=== PATIENT | female | born 1995 | race African-American/Black ===

== ENCOUNTER 2019-04-08 05:17 | Inpatient (IN) | payer MEDICAID, OTHER ==
[2019-04-08] MEDS ORDERED: Butorphanol 1 MG/ML SDV IVPUSH PRN (07:19)
[2019-04-08] MEDS ORDERED: Water For Irrigation,Sterile 1,000 ML Container IRR PRN (07:19)
[2019-04-08] MEDS ORDERED: Sodium Chloride 0.9% 2.5 ML Syringe FLUSH PRN (07:19)
[2019-04-08] MEDS ORDERED: Lidocaine 1% 50 ML MDV INJECT PRN (07:19)
[2019-04-08] MEDS ORDERED: Sodium Chloride 0.9% 10 ML Syringe FLUSH PRN (07:19)
[2019-04-08] MEDS ORDERED: Nalbuphine 10 MG/1 ML Vial IVPUSH PRN (07:19)
[2019-04-08] MEDS ORDERED: Methylergonovine 0.2 MG/1 ML Amp IM PRN (07:19)
[2019-04-08] MEDS ORDERED: Misoprostol 200 MCG Tab PO PRN (07:19)
[2019-04-08] MEDS ORDERED: Sodium Chloride 0.9% 10 ML SDV IV PRN (07:19)
[2019-04-08] MEDS ORDERED: Ondansetron 4 MG/2 ML SDV IV PRN (07:19)
[2019-04-08] MEDS ORDERED: Carboprost Tromethamine 250 MCG/1 ML Amp IM PRN (07:19)
[2019-04-08] MEDS ORDERED: Tranexamic Acid 1,000 MG in Sodium Chloride 0.9% 100 ML IV PRN (07:19)
[2019-04-08] MEDS ORDERED: Oxytocin/0.9 % Sodium Chloride 30 UNIT/500 ML BAG IV SCH ×2 (07:30→17:00)
[2019-04-08] MEDS: Lactated Ringers 1,000 ML IV SCH ×2 (10:55→16:56)
--- NOTE | 2019-04-08 11:56 | PCM.LDHP ---
L&D History of Present Illness - General Date of Service: 04/08/19 Admit Problem/Dx: Patient Status Order with Admit Dx/Problem 04/08/19 06:02 Patient Status [ADT] Routine 04/08/19 07:20 Patient Status [ADT] Routine Admission Diagnosis/Problem Admission Diagnosis/Problem Source of Information: Patient History Limitations: Reports: No Limitations - History of Present Illness Pain Score: 10 Improves with: Reports: None Worsens with: Reports: None Associated Symptoms: Reports: N - Related Data Allergies/Adverse Reactions: Allergies Allergy/AdvReac Type Severity Reaction Status Date / Time No Known Allergies Allergy Verified 04/03/19 12:03 Home Medications: Home Meds . [No Known Home Meds] 04/03/19 [History] H&P Review of Systems - Review of Systems: Review Of Systems: See Below General: Reports: No Symptoms HEENT: Reports: No Symptoms Pulmonary: Reports: No Symptoms Cardiovascular: Reports: No Symptoms Gastrointestinal: Reports: No Symptoms Genitourinary: Reports: No Symptoms Musculoskeletal: Reports: No Symptoms Skin: Reports: No Symptoms Psychiatric: Reports: No Symptoms Neurological: Reports: No Symptoms Hematologic/Lymphatic: Reports: No Symptoms Immunologic: Reports: No Symptoms L&D Exam - Exam Exam: See Below - OB Specific Fundal Height In cm: 39 Contraction Intensity: Moderate Movement: Active Heart Tones: Present Presentation: Vertex - Mckay Score Mckay Score Cervix Position: Anterior Mckay Score Consistency: Soft Mckay Score Effacement: >80% Mckay Score Dilation: > 5 cm Mckay Score Infant's Station: -3 Mckay Score Total: 10 - Exam General: Alert, Oriented HEENT: PERRLA, Conjunctiva Clear, EACs Clear, EOMI, Hearing Intact, Mucosa Moist & [place], Nares Patent, Normal Nasal Septum, Posterior Pharynx Clear, TMs Clear Neck: Supple, Trachea Midline Lungs: Clear to Auscultation, Normal Respiratory Effort Cardiovascular: Regular Rate, Regular Rhythm GI/Abdominal Exam: Normal Bowel Sounds, Soft, Non-Tender, No Organomegaly, No Distention, No Abnormal Bruit, No Mass, Pelvis Stable Rectal Exam: Normal Exam, Normal Rectal Tone Genitourinary: Normal external exam, Normal bimanual exam, Normal speculum exam Back Exam: Normal Inspection, Full Range of Motion Extremities: Normal Inspection, Normal Range of Motion, Non-Tender, No Pedal Edema, Normal Capillary Refill Skin: Warm, Dry, Intact Neurological: Cranial Nerves Intact, Reflexes Equal Bilateral Psychiatric: Alert, Normal Affect, Normal Mood - Patient Data Lab Results Last 24 hrs: Laboratory Results - last 24 hr 04/08/19 04/08/19 Range/Units 07:45 07:45 WBC 11.33 H (4.0-11.0) K/uL RBC 3.85 L (4.30-5.90) M/uL Hgb 11.0 L (12.0-16.0) g/dL Hct 33.5 L (36.0-46.0) % MCV 87.0 (80.0-98.0) fL MCH 28.6 (27.0-32.0) pg MCHC 32.8 (31.0-37.0) g/dL RDW Std Deviation 46.4 (28.0-62.0) fl RDW Coeff of Urbano 15 (11.0-15.0) % Plt Count 259 (150-400) K/uL MPV 11.70 (7.40-12.00) fL Nucleated RBC % 0.0 /100WBC Nucleated RBCs # 0 K/uL Blood Type O POSITIVE Antibody Screen NEGATIVE Result Diagrams: 04/08/19 07:45 Problem List Initiated/Reviewed/Updated: Yes Orders Last 24hrs: Active Orders 24 hr Category Date Time Status Patient Status [ADT] Routine ADT 04/08/19 06:02 Active Patient Status [ADT] Routine ADT 04/08/19 07:20 Active Heart Tones [RC] CONTINUOUS Care 04/08/19 07:20 Active Non Stress Test [RC] PER UNIT ROUTINE Care 04/08/19 06:02 Active Non Stress Test [RC] PER UNIT ROUTINE Care 04/08/19 07:20 Active May Shower [RC] ASDIRECTED Care 04/08/19 07:20 Active Notify Provider [RC] PRN Care 04/08/19 07:20 Active Up ad Angelica [RC] ASDIRECTED Care 04/08/19 06:02 Active Up ad Angelica [RC] ASDIRECTED Care 04/08/19 07:20 Active Vaginal Exam [RC] Click to Edit Care 04/08/19 06:02 Active Vaginal Exam [RC] PRN Care 04/08/19 07:20 Active Vital Signs [RC] PER UNIT ROUTINE Care 04/08/19 06:02 Active Vital Signs [RC] PER UNIT ROUTINE Care 04/08/19 07:20 Active Butorphanol [Stadol] Med 04/08/19 07:19 Active 1 mg IVPUSH Q1H PRN Carboprost Tromethamine [Hemabate DS] Med 04/08/19 07:19 Active 250 mcg IM ASDIRECTED PRN Lactated Ringers [Ringers, Lactated] 1,000 ml Med 04/08/19 07:30 Active IV ASDIRECTED Lidocaine 1% [Xylocaine 1%] Med 04/08/19 07:19 Active 50 ml INJECT ONETIME PRN Methylergonovine [Methergine] Med 04/08/19 07:19 Active 0.2 mg IM ASDIRECTED PRN Nalbuphine [Nubain] Med 04/08/19 07:19 Active 10 mg IVPUSH Q1H PRN Ondansetron [Zofran] Med 04/08/19 07:19 Active 4 mg IV Q4H PRN Oxytocin/0.9 % Sodium Chloride [Oxytocin 30 Unit/500 ML Med 04/08/19 07:30 Active -NS] 30 unit in 500 ml IV TITRATE Sodium Chloride 0.9% [Normal Saline] Med 04/08/19 07:19 Active 10 ml IV ASDIRECTED PRN Sodium Chloride 0.9% [Saline Flush] Med 04/08/19 07:19 Active 10 ml FLUSH ASDIRECTED PRN Sodium Chloride 0.9% [Saline Flush] Med 04/08/19 07:19 Active 2.5 ml FLUSH ASDIRECTED PRN Tranexamic Acid [Cyklokapron] 1,000 mg Med 04/08/19 07:19 Active Sodium Chloride 0.9% [Normal Saline] 100 ml IV ONETIME Water For Irrigation,Sterile [Sterile Water for Med 04/08/19 07:19 Active Irrigation] 1,000 ml IRR ASDIRECTED PRN miSOPROStol [Cytotec] Med 04/08/19 07:19 Active 200 mcg PO ONETIME PRN Scalp Electrode [WOMSER] Per Unit Routine Oth 04/08/19 07:20 Ordered Peripheral IV Insertion Adult [OM.PC] Routine Oth 04/08/19 07:20 Ordered Resuscitation Status Routine Resus Stat 04/08/19 07:19 Ordered Medication Orders Butorphanol Tartrate (Stadol) 1 mg IVPUSH Q1H PRN PRN Reason: Pain Last Admin: 04/08/19 10:55 Dose: 1 mg Carboprost Tromethamine (Hemabate Ds) 250 mcg IM ASDIRECTED PRN PRN Reason: Post Hemorrhage Tranexamic Acid 1,000 mg/ (Sodium Chloride) 110 mls @ 660 mls/hr IV ONETIME PRN PRN Reason: Bleeding Lactated Ringer's (Ringers, Lactated) 1,000 mls @ 150 mls/hr IV ASDIRECTED JASON Last Admin: 04/08/19 10:55 Dose: 999 mls/hr Oxytocin/Sodium Chloride (Oxytocin 30 Unit/500 Ml-Ns) 30 unit in 500 mls @ 555 mls/hr IV TITRATE [facility] Lidocaine HCl (Xylocaine 1%) 50 ml INJECT ONETIME PRN PRN Reason: Laceration repair Methylergonovine Maleate (Methergine) 0.2 mg IM ASDIRECTED PRN PRN Reason: Post Hemorrhage Misoprostol (Cytotec) 200 mcg PO ONETIME PRN PRN Reason: Post Hemorrhage Nalbuphine HCl (Nubain) 10 mg IVPUSH Q1H PRN PRN Reason: Pain (severe 7-10) Ondansetron HCl (Zofran) 4 mg IV Q4H PRN PRN Reason: Nausea/Vomiting Sodium Chloride (Saline Flush) 10 ml FLUSH ASDIRECTED PRN PRN Reason: Keep Vein Open Sodium Chloride (Saline Flush) 2.5 ml FLUSH ASDIRECTED PRN PRN Reason: Keep Vein Open Sodium Chloride (Normal Saline) 10 ml IV ASDIRECTED PRN PRN Reason: IV Use Sterile Water (Sterile Water For Irrigation) 1,000 ml IRR ASDIRECTED PRN PRN Reason: delivery Assessment/Plan Comment:: This patient is an S sign and have a limited care at [facility]. According to her she is to him and she is in active labor now she is dilated to 5 cm complete vertex and -3 head GPS status of former her previous care record is negative. Would admit her to labor and delivery and she can have epidural when it is appropriate
[2019-04-08] MEDS ORDERED: Lidocaine HCl/EPINEPHrine 5 ML IJ ONE (12:21)
--- NOTE | 2019-04-08 12:59 | PCM.PREANE ---
Preanesthetic Assessment - Anesthesia/Transfusion/Family Hx Anesthesia History: No Prior Anesthesia Family History of Anesthesia Reaction: No Transfusion History: No Prior Transfusion(s) - Review of Systems General: No Symptoms Pulmonary: No Symptoms Cardiovascular: No Symptoms Gastrointestinal: No Symptoms Neurological: No Symptoms Other: Reports: None - Physical Assessment NPO Status Date: 04/08/19 NPO Status Time: 00:01 (only ice and water since [place]) Height: 5 ft 5 in Weight: 106.594 kg ASA Class: 2E Mental Status: Alert & Oriented x3 Airway Class: Mallampati = 3 Dentition: Reports: Normal Dentition Thyro-Mental Finger Breadths: 3 ROM/Head Extension: Full Lungs: Clear to Auscultation, Normal Respiratory Effort Cardiovascular: Regular Rate, Regular Rhythm - Lab Values: Laboratory Last Values WBC 11.33 K/uL (4.0-11.0) H 04/08/19 07:45 RBC 3.85 M/uL (4.30-5.90) L 04/08/19 07:45 Hgb 11.0 g/dL (12.0-16.0) L 04/08/19 07:45 Hct 33.5 % (36.0-46.0) L 04/08/19 07:45 MCV 87.0 fL (80.0-98.0) 04/08/19 07:45 MCH 28.6 pg (27.0-32.0) 04/08/19 07:45 MCHC 32.8 g/dL (31.0-37.0) 04/08/19 07:45 RDW Std Deviation 46.4 fl (28.0-62.0) 04/08/19 07:45 RDW Coeff of Urbano 15 % (11.0-15.0) 04/08/19 07:45 Plt Count 259 K/uL (150-400) 04/08/19 07:45 MPV 11.70 fL (7.40-12.00) 04/08/19 07:45 Nucleated RBC % 0.0 /100WBC 04/08/19 07:45 Nucleated RBCs # 0 K/uL 04/08/19 07:45 Blood Type O POSITIVE 04/08/19 07:45 Antibody Screen NEGATIVE 04/08/19 07:45 - Allergies Allergies/Adverse Reactions: Allergies Allergy/AdvReac Type Severity Reaction Status Date / Time No Known Allergies Allergy Verified 04/03/19 12:03 PreAnesthesia Questionnaire - Past Health History Medical/Surgical History: Denies Medical/Surgical History [employer]CIAL [employer] MA[employer]GER History: Reports: - HOME MEDS Home Medications: Home Meds . [No Known Home Meds] 04/03/19 [History] - CURRENT (IN HOUSE) MEDS Current Meds: Current Medications Butorphanol Tartrate (Stadol) 1 mg IVPUSH Q1H PRN PRN Reason: Pain Last Admin: 04/08/19 10:55 Dose: 1 mg Carboprost Tromethamine (Hemabate Ds) 250 mcg IM ASDIRECTED PRN PRN Reason: Post Hemorrhage Tranexamic Acid 1,000 mg/ (Sodium Chloride) 110 mls @ 660 mls/hr IV ONETIME PRN PRN Reason: Bleeding Lactated Ringer's (Ringers, Lactated) 1,000 mls @ 150 mls/hr IV ASDIRECTED JASON Last Admin: 04/08/19 10:55 Dose: 999 mls/hr Oxytocin/Sodium Chloride (Oxytocin 30 Unit/500 Ml-Ns) 30 unit in 500 mls @ 555 mls/hr IV TITRATE [facility] Lidocaine HCl (Xylocaine 1%) 50 ml INJECT ONETIME PRN PRN Reason: Laceration repair Methylergonovine Maleate (Methergine) 0.2 mg IM ASDIRECTED PRN PRN Reason: Post Hemorrhage Misoprostol (Cytotec) 200 mcg PO ONETIME PRN PRN Reason: Post Hemorrhage Nalbuphine HCl (Nubain) 10 mg IVPUSH Q1H PRN PRN Reason: Pain (severe 7-10) Ondansetron HCl (Zofran) 4 mg IV Q4H PRN PRN Reason: Nausea/Vomiting Sodium Chloride (Saline Flush) 10 ml FLUSH ASDIRECTED PRN PRN Reason: Keep Vein Open Sodium Chloride (Saline Flush) 2.5 ml FLUSH ASDIRECTED PRN PRN Reason: Keep Vein Open Sodium Chloride (Normal Saline) 10 ml IV ASDIRECTED PRN PRN Reason: IV Use Sterile Water (Sterile Water For Irrigation) 1,000 ml IRR ASDIRECTED PRN PRN Reason: delivery Discontinued Medications Fentanyl/Bupivacaine HCl (Dhtdoxmm-Nsjkh-Pa 2 Mcg/Ml-0.125%) Confirm Administered Dose 100 mls @ as directed .ROUTE .STK-MED ONE Stop: 04/08/19 12:22 Lidocaine/Epinephrine (Lidocaine 1.5%-Epi 1:200,000) Confirm Administered Dose 5 ml IJ .STK-MED ONE Stop: 04/08/19 12:22
[2019-04-08] MEDS ORDERED: Terbutaline 1 MG/ML SDV SUBCUT PRN (16:57)
--- NOTE | 2019-04-08 18:31 | PCM.SN ---
- Free Text/Narrative Note: Called for increased pain. Patient complaining of more pain in lower abdomen and pelvis. Patient is dilated to 7 cm. Pump rate increased to 8 ml per hour.
[2019-04-08] MEDS ORDERED: Bupivacaine 0.25% 10 ML SDV ONE (19:02)
[2019-04-08] MEDS ORDERED: fentaNYL 100 MCG/2 ML SDV ONE (19:02)
--- NOTE | 2019-04-08 19:12 | PCM.SN ---
- Free Text/Narrative Note: Patient is still only 7cm and complaining that the boluses through the pump are not helping. Patient bolused with 100 mcg of Fentanyl and 5 ml of 0.25% Bupivacaine
--- NOTE | 2019-04-08 20:18 | PCM.SN ---
- Free Text/Narrative Note: called to change epidural bag. new bag hung and infusion restarted.
[2019-04-08] MEDS ORDERED: oxyCODONE 5 MG Tab PO PRN (21:26)
[2019-04-08] MEDS ORDERED: Ibuprofen 400 MG Tab PO PRN (21:26)
[2019-04-08] MEDS ORDERED: Ibuprofen 800 MG Tab PO PRN (21:26)
[2019-04-08] MEDS ORDERED: Benzocaine/Menthol 20%-0.5% Spray 78 GM Cannister TOP PRN (21:26)
[2019-04-08] MEDS ORDERED: Acetaminophen 500 MG Tab PO PRN (21:26)
[2019-04-08] MEDS ORDERED: Bisacodyl 10 MG Supp RECTAL PRN (21:26)
[2019-04-08] MEDS ORDERED: Witch Hazel Medicated Pads 40/Jar TOP PRN (21:26)
[2019-04-08] MEDS ORDERED: Docusate Sodium 100 MG Cap PO PRN (21:26)
[2019-04-08] MEDS ORDERED: Lanolin 100% Cream 7 GM Tube TOP PRN (21:26)
--- NOTE | 2019-04-09 02:33 | OR ---
SURGEON: Rubén Harris MD DATE OF PROCEDURE: Ms. Palumbo is 23-year-old patient, primary . She had no care in this country. [place], [place]. The patient has brought some of us record with her. From what we can glean from her is that she is GBS negative and she was admitted in active labor. At the time of admission, she was 4 centimeter, complete, and vertex; and I did an artificial rupture of the membrane, was clear fluid. The patient had epidural anesthesia for labor analgesia. She progressed to 7, and then she required Pitocin augmentation to enhance her labor. She was able to accomplish normal spontaneous vaginal delivery without any problem, a male fetus, cried immediately. score reported to be 8 and 9. Weight is not available. The placenta delivered spontaneous, complete, and intact without any problem. There was no perineal or labor laceration, and there was no need for episiotomy. Estimated blood loss 350 mL. heart rate was category I. There was no complication in the delivery and labor process. CORTNEY / LEENA /[id number]
--- NOTE | 2019-04-09 07:51 | PCM48HPAN ---
Post Anesthesia Note - EVALUATION WITHIN 48HRS OF ANESTHETIC Vital Signs in Normal Range: Yes Patient Participated in Evaluation: Yes Respiratory Function Stable: Yes Airway Patent: Yes Cardiovascular Function Stable: Yes Hydration Status Stable: Yes Pain Control Satisfactory: Yes Nausea and Vomiting Control Satisfactory: Yes Mental Status Recovered: Yes Resp Rate: 18
--- NOTE | 2019-04-09 08:34 | PCM.PNPP ---
- General Info Date of Service: 04/09/19 Admission Dx/Problem (Free Text): Patient Status Order with Admit Dx/Problem 04/08/19 06:02 Patient Status [ADT] Routine 04/08/19 07:20 Patient Status [ADT] Routine Admission Diagnosis/Problem Admission Diagnosis/Problem Functional Status: Reports: Pain Controlled, Tolerating Diet, Ambulating, Urinating - Review of Systems General: Reports: No Symptoms HEENT: Reports: No Symptoms Pulmonary: Reports: No Symptoms Cardiovascular: Reports: No Symptoms Gastrointestinal: Reports: No Symptoms Genitourinary: Reports: No Symptoms Musculoskeletal: Reports: No Symptoms Skin: Reports: No Symptoms Neurological: Reports: No Symptoms Psychiatric: Reports: No Symptoms - General Info Date of Service: 04/09/19 - Patient Data Vital Signs - Most Recent: Last Vital Signs Temp 37.1 C 04/09/19 04:36 Pulse 99 04/09/19 07:45 Resp 18 04/09/19 07:51 BP 130/92 H 04/09/19 07:45 Pulse Ox 99 04/09/19 07:45 Weight - Most Recent: 106.594 kg Lab Results - Last 24 Hours: Laboratory Results - last 24 hr 04/08/19 04/09/19 Range/Units 07:45 05:40 Hgb 9.6 L (12.0-16.0) g/dL Hct 29.6 L (36.0-46.0) % Blood Type O POSITIVE Antibody Screen NEGATIVE Med Orders - Current: Current Medications Acetaminophen (Tylenol Extra Strength) 500 mg PO Q4H PRN PRN Reason: Pain Acetaminophen (Tylenol Extra Strength) 1,000 mg PO Q4H PRN PRN Reason: Pain Benzocaine/Menthol (Dermoplast Pain Relief 20%-0.5% [place]) 78 gm TOP ASDIRECTED PRN PRN Reason: Perineal Comfort Measure Bisacodyl (Dulcolax) 10 mg RECTAL ONETIME PRN PRN Reason: Constipation Butorphanol Tartrate (Stadol) 1 mg IVPUSH Q1H PRN PRN Reason: Pain Last Admin: 04/08/19 10:55 Dose: 1 mg Carboprost Tromethamine (Hemabate Ds) 250 mcg IM ASDIRECTED PRN PRN Reason: Post Hemorrhage Docusate Sodium (Colace) 100 mg PO BID PRN PRN Reason: Constipation Emollient Ointment (Lansinoh Hpa) 0 gm TOP ASDIRECTED PRN PRN Reason: Sore Nipples Tranexamic Acid 1,000 mg/ (Sodium Chloride) 110 mls @ 660 mls/hr IV ONETIME PRN PRN Reason: Bleeding Lactated Ringer's (Ringers, Lactated) 1,000 mls @ 150 mls/hr IV ASDIRECTED JASON Last Admin: 04/08/19 16:56 Dose: 150 mls/hr Oxytocin/Sodium Chloride (Oxytocin 30 Unit/500 Ml-Ns) 30 unit in 500 mls @ 555 mls/hr IV TITRATE JASON Oxytocin/Sodium Chloride (Oxytocin 30 Unit/500 Ml-Ns) 30 unit in 500 mls @ 2 mls/hr IV TITRATE JASON; Protocol Last Titration: 04/08/19 18:25 Dose: 6 munits/min, 6 mls/hr Ibuprofen (Motrin) 400 mg PO Q4H PRN PRN Reason: Pain Ibuprofen (Motrin) 800 mg PO Q6H PRN PRN Reason: Pain Lidocaine HCl (Xylocaine 1%) 50 ml INJECT ONETIME PRN PRN Reason: Laceration repair Methylergonovine Maleate (Methergine) 0.2 mg IM ASDIRECTED PRN PRN Reason: Post Hemorrhage Misoprostol (Cytotec) 200 mcg PO ONETIME PRN PRN Reason: Post Hemorrhage Nalbuphine HCl (Nubain) 10 mg IVPUSH Q1H PRN PRN Reason: Pain (severe 7-10) Ondansetron HCl (Zofran) 4 mg IV Q4H PRN PRN Reason: Nausea/Vomiting Oxycodone HCl (Oxycodone) 5 mg PO Q2H PRN PRN Reason: Pain Sodium Chloride (Saline Flush) 10 ml FLUSH ASDIRECTED PRN PRN Reason: Keep Vein Open Sodium Chloride (Saline Flush) 2.5 ml FLUSH ASDIRECTED PRN PRN Reason: Keep Vein Open Sodium Chloride (Normal Saline) 10 ml IV ASDIRECTED PRN PRN Reason: IV Use Sterile Water (Sterile Water For Irrigation) 1,000 ml IRR ASDIRECTED PRN PRN Reason: delivery Terbutaline Sulfate (Brethine) 0.25 mg SUBCUT ASDIRECTED PRN PRN Reason: Tacysystole Witch [place] (Tucks) 1 pad TOP ASDIRECTED PRN PRN Reason: comfort care Discontinued Medications Bupivacaine HCl (Sensorcaine-Mpf 0.25%) Confirm Administered Dose 10 ml .ROUTE .STK-MED ONE Stop: 04/08/19 19:03 Fentanyl (Sublimaze) Confirm Administered Dose 100 mcg .ROUTE .STK-MED ONE Stop: 04/08/19 19:03 Fentanyl/Bupivacaine HCl (Ehjbnmwf-Fkqvt-Uy 2 Mcg/Ml-0.125%) Confirm Administered Dose 100 mls @ as directed .ROUTE .STK-MED ONE Stop: 04/08/19 12:22 Fentanyl/Bupivacaine HCl (Wnvbnpvg-Xaoxz-Nm 2 Mcg/Ml-0.125%) Confirm Administered Dose 100 mls @ as directed .ROUTE .STK-MED ONE Stop: 04/08/19 20:12 Lidocaine/Epinephrine (Lidocaine 1.5%-Epi 1:200,000) Confirm Administered Dose 5 ml IJ .STK-MED ONE Stop: 04/08/19 12:22 - Interaction Infant Disposition, : at Bedside Infant Interaction: Holding Infant Feeding: Breastfed Infant; Nursed Well Support Person: Other (see below) - Recovery Exam Fundal Tone: Firms with Massage Fundal Level: At Umbilicus Fundal Placement: Midline Lochia Amount: Scant Lochia Color: Rubra/Red Perineum Description: Intact, Minimal Bruising/Swelling, Edematous Episiotomy/Laceration: None Bladder Status: Voiding Urinary Elimination: Voided - Exam General: Alert, Oriented, Cooperative, No Acute Distress Lungs: Normal Respiratory Effort GI/Abdominal Exam: Soft, Non-Tender Extremities: Normal Range of Motion, No Pedal Edema Skin: Warm, Dry, Intact Neurological: No New Focal Deficit, Normal Speech, Normal Tone, Strength Equal Bilateral Psy/Mental Status: Alert, Normal Affect, Normal Mood - Problem List & Annotations (1) Supervision of normal IUP (intrauterine ) in primigravida SNOMED Code(s): 29885218, 922377503, 234625913, 988833575 Code(s): Z34.00 - ENCNTR FOR SUPRVSN OF NORMAL FIRST , UNSP TRIMESTER Status: Acute Priority: High Current Visit: Yes Qualifiers: Trimester: third trimester Qualified Code(s): Z34.03 - Encounter for supervision of normal first , third trimester (2) (normal spontaneous vaginal delivery) SNOMED Code(s): 32254285, 585991568 Code(s): O80 - ENCOUNTER FOR FULL-TERM UNCOMPLICATED DELIVERY Status: Acute Priority: High Current Visit: Yes - Problem List Review Problem List Initiated/Reviewed/Updated: Yes - Plan Plan:: This patient is an S sign and have a limited care at [facility]. According to her she is to him and she is in active labor now she is dilated to 5 cm complete vertex and -3 head GPS status of former her previous care record is negative. Would admit her to labor and delivery and she can have epidural when it is appropriate day #1 A: VSS, AF, Lochia small, denies any issues. Breast feeding well. Stable P: Continue routine pp poc
[2019-04-10] MEDS: Acetaminophen 500 MG Tab PO PRN ×2 (01:11→07:51)
--- NOTE | 2019-04-10 08:08 | PCM.DCSUM1 ---
Discharge Summary - Hospital Course Free Text/Narrative:: Discharge home, follow up in 6 weeks for visit. Diagnosis: Stroke: No - Discharge Data Discharge Date: 04/10/19 Discharge Disposition: Admitted As Inpatient 65 Condition: Good - Discharge Diagnosis/Problem(s) (1) Supervision of normal IUP (intrauterine ) in primigravida SNOMED Code(s): 02165503, 475875414, 872511450, [id number] ICD Code: Z34.00 - ENCNTR FOR SUPRVSN OF NORMAL FIRST , UNSP TRIMESTER Status: Acute Priority: High Current Visit: Yes Qualifiers: Trimester: third trimester Qualified Code(s): Z34.03 - Encounter for supervision of normal first , third trimester (2) (normal spontaneous vaginal delivery) SNOMED Code(s): 81343602, 492019891 ICD Code: O80 - ENCOUNTER FOR FULL-TERM UNCOMPLICATED DELIVERY Status: Acute Priority: High Current Visit: Yes - Patient Instructions Diet: Usual Diet as Tolerated Activity: As Tolerated, No Strenuous Activities, Rest and Relax Today Driving: May Drive Today Showering/Bathing: May Shower Notify Provider of: Fever, Increased Pain, Swelling and Redness, Nausea and/or Vomiting Other/Special Instructions: Discharge home, follow up in 6 weeks for visit. - Discharge Plan *PRESCRIPTION DRUG MONITORING PROGRAM REVIEWED*: Not Applicable *COPY OF PRESCRIPTION DRUG MONITORING REPORT IN PATIENT GOMEZ: Not Applicable Prescriptions/Med Rec: Ibuprofen [Motrin] 800 mg PO Q6H PRN #90 tablet PRN Reason: Pain Home Medications: Home Meds Ibuprofen [Motrin] 800 mg PO Q6H PRN #90 tablet 04/10/19 [Rx] Oxygen Therapy Mode: Room Air Referrals: [facility] [Outside] Rubén Harris MD [Physician] - 05/13/19 10:45 am - Discharge Summary/Plan Comment DC Time >30 min.: Yes - General Info Date of Service: 04/10/19 Admission Dx/Problem (Free Text: Patient Status Order with Admit Dx/Problem 04/08/19 06:02 Patient Status [ADT] Routine 04/08/19 07:20 Patient Status [ADT] Routine Admission Diagnosis/Problem Admission Diagnosis/Problem Functional Status: Reports: Pain Controlled, Tolerating Diet, Ambulating, Urinating - Review of Systems General: Reports: No Symptoms HEENT: Reports: No Symptoms Pulmonary: Reports: No Symptoms Cardiovascular: Reports: No Symptoms Gastrointestinal: Reports: No Symptoms Genitourinary: Reports: No Symptoms Musculoskeletal: Reports: No Symptoms Skin: Reports: No Symptoms Neurological: Reports: No Symptoms Psychiatric: Reports: No Symptoms - Patient Data Vitals - Most Recent: Last Vital Signs Temp 36.1 C 04/10/19 07:30 Pulse 81 04/10/19 07:30 Resp 17 04/10/19 07:30 BP 120/78 04/10/19 07:30 Pulse Ox 99 04/10/19 07:30 Weight - Most Recent: 106.594 kg Med Orders - Current: Current Medications Acetaminophen (Tylenol Extra Strength) 500 mg PO Q4H PRN PRN Reason: Pain Acetaminophen (Tylenol Extra Strength) 1,000 mg PO Q4H PRN PRN Reason: Pain Last Admin: 04/10/19 07:51 Dose: 1,000 mg Benzocaine/Menthol (Dermoplast Pain Relief 20%-0.5% [place]) 78 gm TOP ASDIRECTED PRN PRN Reason: Perineal Comfort Measure Bisacodyl (Dulcolax) 10 mg RECTAL ONETIME PRN PRN Reason: Constipation Butorphanol Tartrate (Stadol) 1 mg IVPUSH Q1H PRN PRN Reason: Pain Last Admin: 04/08/19 10:55 Dose: 1 mg Carboprost Tromethamine (Hemabate Ds) 250 mcg IM ASDIRECTED PRN PRN Reason: Post Hemorrhage Docusate Sodium (Colace) 100 mg PO BID PRN PRN Reason: Constipation Emollient Ointment (Lansinoh Hpa) 0 gm TOP ASDIRECTED PRN PRN Reason: Sore Nipples Tranexamic Acid 1,000 mg/ (Sodium Chloride) 110 mls @ 660 mls/hr IV ONETIME PRN PRN Reason: Bleeding Lactated Ringer's (Ringers, Lactated) 1,000 mls @ 150 mls/hr IV ASDIRECTED JASON Last Admin: 04/08/19 16:56 Dose: 150 mls/hr Oxytocin/Sodium Chloride (Oxytocin 30 Unit/500 Ml-Ns) 30 unit in 500 mls @ 555 mls/hr IV TITRATE JASON Oxytocin/Sodium Chloride (Oxytocin 30 Unit/500 Ml-Ns) 30 unit in 500 mls @ 2 mls/hr IV TITRATE JASON; Protocol Last Titration: 04/08/19 18:25 Dose: 6 munits/min, 6 mls/hr Ibuprofen (Motrin) 400 mg PO Q4H PRN PRN Reason: Pain Ibuprofen (Motrin) 800 mg PO Q6H PRN PRN Reason: Pain Last Admin: 04/09/19 13:08 Dose: 800 mg Lidocaine HCl (Xylocaine 1%) 50 ml INJECT ONETIME PRN PRN Reason: Laceration repair Methylergonovine Maleate (Methergine) 0.2 mg IM ASDIRECTED PRN PRN Reason: Post Hemorrhage Misoprostol (Cytotec) 200 mcg PO ONETIME PRN PRN Reason: Post Hemorrhage Nalbuphine HCl (Nubain) 10 mg IVPUSH Q1H PRN PRN Reason: Pain (severe 7-10) Ondansetron HCl (Zofran) 4 mg IV Q4H PRN PRN Reason: Nausea/Vomiting Oxycodone HCl (Oxycodone) 5 mg PO Q2H PRN PRN Reason: Pain Sodium Chloride (Saline Flush) 10 ml FLUSH ASDIRECTED PRN PRN Reason: Keep Vein Open Sodium Chloride (Saline Flush) 2.5 ml FLUSH ASDIRECTED PRN PRN Reason: Keep Vein Open Sodium Chloride (Normal Saline) 10 ml IV ASDIRECTED PRN PRN Reason: IV Use Sterile Water (Sterile Water For Irrigation) 1,000 ml IRR ASDIRECTED PRN PRN Reason: delivery Terbutaline Sulfate (Brethine) 0.25 mg SUBCUT ASDIRECTED PRN PRN Reason: Tacysystole Witch [place] (Tucks) 1 pad TOP ASDIRECTED PRN PRN Reason: comfort care Discontinued Medications Bupivacaine HCl (Sensorcaine-Mpf 0.25%) Confirm Administered Dose 10 ml .ROUTE .STK-MED ONE Stop: 04/08/19 19:03 Fentanyl (Sublimaze) Confirm Administered Dose 100 mcg .ROUTE .STK-MED ONE Stop: 04/08/19 19:03 Fentanyl/Bupivacaine HCl (Ucefzfkh-Vmiyi-Bs 2 Mcg/Ml-0.125%) Confirm Administered Dose 100 mls @ as directed .ROUTE .STK-MED ONE Stop: 04/08/19 12:22 Fentanyl/Bupivacaine HCl (Wtupwkqb-Xvwsb-Yn 2 Mcg/Ml-0.125%) Confirm Administered Dose 100 mls @ as directed .ROUTE .STK-MED ONE Stop: 04/08/19 20:12 Lidocaine/Epinephrine (Lidocaine 1.5%-Epi 1:200,000) Confirm Administered Dose 5 ml IJ .STK-MED ONE Stop: 04/08/19 12:22 - Exam General: Reports: Alert, Oriented, Cooperative, No Acute Distress Lungs: Reports: Normal Respiratory Effort GI/Abdominal Exam: Soft, Non-Tender (Female) Exam: Deferred, Vaginal Bleeding Rectal (Female) Exam: Deferred Back Exam: Reports: Full Range of Motion Extremities: Normal Range of Motion, Non-Tender Skin: Reports: Warm, Dry, Intact Neurological: Reports: No New Focal Deficit, Normal Speech, Normal Tone, Strength Equal Bilateral Psy/Mental Status: Reports: Alert, Normal Affect, Normal Mood
== END 2019-04-10 15:41 | disposition critical access hospital (66) | DRG 807 ==
LOC: MW.OBCHECK 05:17 → MW.OB 05:18 → MW.OBCHECK 07:20 → MW.OB 07:20 → OBSVTOIN 21:26 → MW.OB 21:27
PROVIDERS: ADMIT Obstetrics & Gynecology; ATTEND Obstetrics & Gynecology
PROC: 10E0XZZ Delivery of Products of Conception, External Approach (ICD-10-PCS; principal; 2019-04-08)
PROC: 10907ZC Drainage of Amniotic Fluid, Therapeutic from Products of Conception, Via Natural or Artificial Opening (ICD-10-PCS; 2019-04-08)
DX: O80 Encounter for full-term uncomplicated delivery (principal); Z37.0 Single live birth; Z3A.38 38 weeks gestation of pregnancy
CPT/HCPCS: 36415; 51702; 59025; 59409; 85014; 85018; 85027; 86850; 86900; 86901; A9270-GY; J0595; J2590; J7120